=== PATIENT | male | born 2000 | race Hispanic/Latino ===

== ENCOUNTER 2024-04-13 15:49 | Emergency (ER) | payer MEDICARE | END 2024-04-13 16:54 | disposition home or self-care (01) | LOC: ERS 15:49 | DX: S93.422A Sprain of deltoid ligament of left ankle, initial encounter (principal); F84.0 Autistic disorder; X50.1XXA Overexertion from prolonged static or awkward postures, initial encounter; Y93.89 Activity, other specified; Y92.219 Unspecified school as the place of occurrence of the external cause | CPT/HCPCS: 99283 ==